=== PATIENT | female | born 1950 | race Caucasian/White ===

== ENCOUNTER 2021-12-11 13:30 | Outpatient (CLI) | payer MEDICARE, SELFPAY ==
--- NOTE | ~2021-12-11 | PE_ITS ---
EXAMINATION: PET skull to mid thigh DATE: 12/11/2021 15:36 INDICATION: Right middle lobe pulmonary nodule. TECHNIQUE: Blood glucose level was 101 mg/dL. 9.431 mCi of 18-fluorodeoxyglucose (18-FDG) was adminis tered i.v. Low dose computed tomography (CT) images were acquired from the base of the brain to the p roximal thighs for attenuation correction and anatomic localization. Automated exposure control was e mployed. Dose-length product (DLP) was 808 mGy-cm. Positron emission tomography (PET) images were acq uired in the same distribution. COMPARISON: None FINDINGS: Head/neck: There is increased activity in the oral cavity and oropharynx without abnormal CT correlat e, likely physiologic. There is a 12 mm nodule in right thyroid lobe with maximum SUV of 5.3. There a re no pathologically enlarged lymph nodes. Chest: There is mild scarring at the lung apices. Calcified pulmonary nodules and calcified hilar lym ph nodes are consistent with old granulomatous disease. There is an 8 mm nodule in right middle lobe without increased activity. No pleural effusion. The heart size is normal. No pericardial effusion. Abdomen/pelvis/proximal thighs: The liver is normal. There are changes of cholecystectomy. Calcificat ions in the spleen are consistent with old granulomatous disease. The pancreas, adrenal glands, and k idneys are normal. There are no dilated loops of bowel. There is diverticulosis of the colon without evidence of diverticulitis. There are no pathologically enlarged lymph nodes. There is no free intrap eritoneal fluid. There are changes of anterior and posterior fusion procedures in lumbar spine. There are bilateral hip arthroplasties. IMPRESSION: 1. 8 mm right middle lobe pulmonary nodule without increased activity, which may be benign, but low-g rade neoplasm cannot be excluded. Noncontrast low-dose chest CT is recommended in 6 months. 2. 12 mm right thyroid nodule with increased activity, which may be benign or malignant. Ultrasound g uided fine-needle aspiration is recommended. Reviewed, dictated and finalized at location A. IMPRESSION: 1. 8 mm right middle lobe pulmonary nodule without increased activity, which ma y be benign, but low-grade neoplasm cannot be excluded. Noncontrast low-dose ch est CT is recommended in 6 months. 2. 12 mm right thyroid nodule with increased activity, which may be benign or m alignant. Ultrasound guided fine-needle aspiration is recommended.
[2021-12-11 14:07] LABS: Glucose Point of Care 101 mg/dl (65-105)
== END 2021-12-11 13:31 | disposition home or self-care (01) ==
PROVIDERS: PCP Family Medicine; Visit Provider Nurse Practitioner Family
DX: R91.1 Solitary pulmonary nodule (principal)
CPT/HCPCS: 78815; A9552